=== PATIENT | male | born 1970 | race Caucasian/White ===

== ENCOUNTER 2018-08-30 20:28 | Emergency (ER) | payer BC, OTHER ==
[~2018-08-30] VITALS: Ht 193 cm; Wt 127.0 kg
[2018-08-30] MEDS ORDERED: ALPRAZolam 0.5 MG (XANAX) TAB PO SCH (20:45)
[2018-08-30 21:01] LABS: BASOPHILS % (AUTO) 0 % (0-10); EOSINOPHILS # (AUTO) 0.1 10^3/uL (0.0-0.3); EOSINOPHILS % (AUTO) 2 % (0-10); HEMATOCRIT 51 % (40-54); LYMPHOCYTES # (AUTO) 1.8 X 10^3 (1.0-4.0); LYMPHOCYTES % (AUTO) 33 % (12-44); MEAN CORPUSCULAR HEMOGLOBIN 29 PG (25-34); MEAN CORPUSCULAR HGB CONC 34 G/DL (32-36); MEAN CORPUSCULAR VOLUME 87 FL (80-99); MEAN PLATELET VOLUME 10.3 FL (7.4-10.4); MONOCYTES # (AUTO) 0.6 X 10^3 (0.0-1.0); MONOCYTES % (AUTO) 10 % (0-12); NEUTROPHILS # (AUTO) 3.1 X 10^3 (1.8-7.8); NEUTROPHILS % (AUTO) 55 % (42-75); PLATELET COUNT 218 10^3/uL (130-400); WHITE BLOOD COUNT 5.6 10^3/uL (4.3-11.0)
--- NOTE | 2018-08-30 21:14 | ED General ---
General Chief Complaint: General Problems/Pain Stated Complaint: GENERAL ANXIETY Source of Information: Patient Exam Limitations: No Limitations History of Present Illness Date Seen by Provider: Aug 30, 2018 Time Seen by Provider: 21:10 Initial Comments To ER with reports of not feeling quite right. States that he feels somewhat anxious. Last and he felt this way he was having ST elevation AL and subsequent had a few stents. He denies chest pain or shortness of breath or any specific complaints. This sensation began about noon today has been constant since Timing/Duration: 4-6 Hours Severity: Moderate Associated Systoms: No Chest Pain, No Diaphoresis, No Seizure Allergies and Home Medications Allergies Coded Allergies: No Known Drug Allergies (Unverified , 08/30/18) Patient Home Medication List Home Medication List Reviewed: Yes Review of Systems Review of Systems Constitutional: see HPI EENTM: see HPI Respiratory: no symptoms reported Cardiovascular: no symptoms reported; No chest pain, No edema, No palpitations , No syncope Genitourinary: no symptoms reported Musculoskeletal: no symptoms reported Skin: no symptoms reported Psychiatric/Neurological: No Symptoms Reported Hematologic/Lymphatic: No Symptoms Reported Immunological/Allergic: no symptoms reported Past Libuwkf-Fpmzyt-Wehglo Hx Patient Social History Recent Foreign Travel: No Contact w/Someone Who Travel: No Physical Exam Vital Signs Capillary Refill : Height, Weight, BMI Height: '" Weight: lbs. oz. kg; BMI Method: General Appearance: No Apparent Distress, WD/WN Eyes: Bilateral Eye Normal Inspection, Bilateral Eye PERRL, Bilateral Eye EOMI HEENT: PERRL/EOMI, TMs Normal Neck: Full Range of Motion, Normal Inspection Respiratory: Normal Breath Sounds, No Accessory Muscle Use, No Respiratory Distress Cardiovascular: Regular Rate, Rhythm, Normal Peripheral Pulses Gastrointestinal: Normal Bowel Sounds, Non Tender, Soft Extremity: Normal Capillary Refill, Normal Inspection Neurologic/Psychiatric: Alert, Oriented x3 Skin: Normal Color, Warm/Dry Comments EKG shows no ST segment changes, normal sinus rhythm Progress/Results/Core Measures Suspected Sepsis SIRS Temperature: Pulse: Respiratory Rate: Laboratory Tests 08/30/18 20:55: White Blood Count 5.6 Blood Pressure / Mean: Laboratory Tests 08/30/18 20:55: Creatinine 1.18, Platelet Count 218, Total Bilirubin 0.8 Results/Orders Lab Results Laboratory Tests Test 08/30/18 20:55 Range/Units White Blood Count 5.6 4.3-11.0 10^3/uL Red Blood Count 5.82 4.35-5.85 10^6/uL Hemoglobin 17.0 13.3-17.7 G/DL Hematocrit 51 40-54 % Mean Corpuscular Volume 87 80-99 FL Mean Corpuscular Hemoglobin 29 25-34 PG Mean Corpuscular Hemoglobin Concent 34 32-36 G/DL Red Cell Distribution Width 14.0 10.0-14.5 % Platelet Count 218 130-400 10^3/uL Mean Platelet Volume 10.3 7.4-10.4 FL Neutrophils (%) (Auto) 55 42-75 % Lymphocytes (%) (Auto) 33 12-44 % Monocytes (%) (Auto) 10 0-12 % Eosinophils (%) (Auto) 2 0-10 % Basophils (%) (Auto) 0 0-10 % Neutrophils # (Auto) 3.1 1.8-7.8 X 10^3 Lymphocytes # (Auto) 1.8 1.0-4.0 X 10^3 Monocytes # (Auto) 0.6 0.0-1.0 X 10^3 Eosinophils # (Auto) 0.1 0.0-0.3 10^3/uL Basophils # (Auto) 0.0 0.0-0.1 10^3/uL Sodium Level 141 135-145 MMOL/L Potassium Level 3.8 3.6-5.0 MMOL/L Chloride Level 106 98-107 MMOL/L Carbon Dioxide Level 21 21-32 MMOL/L Anion Gap 14 5-14 MMOL/L Blood Urea Nitrogen 15 7-18 MG/DL Creatinine 1.18 0.60-1.30 MG/DL Estimat Glomerular Filtration Rate > 60 BUN/Creatinine Ratio 13 Glucose Level 119 H 70-105 MG/DL Calcium Level 9.5 8.5-10.1 MG/DL Corrected Calcium 9.2 8.5-10.1 MG/DL Magnesium Level 2.4 1.8-2.4 MG/DL Total Bilirubin 0.8 0.1-1.0 MG/DL Aspartate Amino Transf (AST/SGOT) 27 5-34 U/L Alanine Aminotransferase (ALT/SGPT) 51 0-55 U/L Alkaline Phosphatase 72 40-136 U/L Troponin I < 0.028 <0.028 NG/ML Total Protein 7.6 6.4-8.2 GM/DL Albumin 4.4 3.2-4.5 GM/DL Thyroid Stimulating Hormone (TSH) 1.38 0.35-4.94 UIU/ML My Orders Orders - LESLIE PEDRO APRN Cbc With Automated Diff (08/30/18 20:39) Comprehensive Metabolic Panel (08/30/18 20:39) Troponin I (08/30/18 20:39) Magnesium (08/30/18 20:39) Thyroid Stimulating Hormone (08/30/18 20:39) Ekg Tracing (08/30/18 20:39) Alprazolam Tablet (Xanax Tablet) (08/30/18 20:45) Rx-Lorazepam (Rx-Ativan) (08/30/18 21:48) Vital Signs/I&O Capillary Refill : Departure Impression Primary Impression: Anxiety Additional Impression: History of coronary artery disease Disposition: HOME, SELF-CARE Condition: Stable Departure-Patient Inst. Decision time for Depature: 21:47 Referrals: UNKNOWN (PCP/Family) Primary Care Physician Patient Instructions: NO INSTRUCTIONS GIVEN Add. Discharge Instructions: 1. Follow-up with your doctor as scheduled 2. Take the lorazepam every 6-8 hours as needed for anxiety. This may make you sleepy so don't drive after taking this for about 6hours. LESLIE PEDRO APRN Aug 30, 2018 21:13
[2018-08-30 21:23] LABS: ALANINE AMINOTRANSFERASE 51 U/L (0-55); ALBUMIN 4.4 GM/DL (3.2-4.5); ALKALINE PHOSPHATASE 72 U/L (40-136); BILIRUBIN,TOTAL 0.8 MG/DL (0.1-1.0); BUN/CREATININE RATIO 13; CALCIUM 9.5 MG/DL (8.5-10.1); CARBON DIOXIDE 21 MMOL/L (21-32); CHLORIDE 106 MMOL/L (98-107); CREATININE SERUM 1.18 MG/DL (0.60-1.30); GFR ESTIMATED > 60; GLUCOSE 119 MG/DL (70-105); MAGNESIUM 2.4 MG/DL (1.8-2.4); POTASSIUM 3.8 MMOL/L (3.6-5.0); SODIUM 141 MMOL/L (135-145); TOTAL PROTEIN 7.6 GM/DL (6.4-8.2)
[2018-08-30] MEDS ORDERED: RX-LORAZEPAM (ATIVAN) 0.5 MG TAB PPK#4 PO ONE (21:48)
[2018-08-30] MEDS ORDERED: RX-LORAZEPAM (ATIVAN) 0.5 MG TAB PPK#4 PO STA (21:56)
[2018-08-30 22:00] VITALS: BP 135/98
== END 2018-08-30 22:00 | disposition home or self-care (01) ==
LOC: ER 20:39
DX: F41.9 Anxiety disorder, unspecified (principal); I25.10 Atherosclerotic heart disease of native coronary artery without angina pectoris; I25.2 Old myocardial infarction; Z95.5 Presence of coronary angioplasty implant and graft
CPT/HCPCS: 36415; 80053; 83735; 84443; 84484; 85025; 93005

== ENCOUNTER 2022-08-17 11:49 | Emergency (ER) | payer SELFPAY ==
[~2022-08-17] VITALS: Ht 190 cm; Wt 123.0 kg
[2022-08-17] MEDS ORDERED: morphine INJ 10 MG/ML 1ML (SYR OR VIAL) IVP STA (12:08)
[2022-08-17] MEDS ORDERED: FAMOTIDINE 20 MG (PEPCID) TABLET PO STA (12:08)
[2022-08-17 12:13] LABS: BASOPHILS % (AUTO) 1 % (0-10); EOSINOPHILS # (AUTO) 0.1 10^3/uL (0.0-0.3); EOSINOPHILS % (AUTO) 1 % (0-10); HEMATOCRIT 50 % (40-54); HEMOGLOBIN 16.9 g/dL (13.3-17.7); LYMPHOCYTES # (AUTO) 1.5 10^3/uL (1.0-4.0); LYMPHOCYTES % (AUTO) 24 % (12-44); MEAN CORPUSCULAR HEMOGLOBIN 30 pg (25-34); MEAN CORPUSCULAR HGB CONC 34 g/dL (32-36); MEAN CORPUSCULAR VOLUME 87 fL (80-99); MEAN PLATELET VOLUME 10.1 fL (9.0-12.2); MONOCYTES # (AUTO) 0.4 10^3/uL (0.0-1.0); MONOCYTES % (AUTO) 7 % (0-12); NEUTROPHILS # (AUTO) 4.1 10^3/uL (1.8-7.8); NEUTROPHILS % (AUTO) 67 % (42-75); PLATELET COUNT 220 10^3/uL (130-400); WHITE BLOOD COUNT 6.1 10^3/uL (4.3-11.0)
[2022-08-17] MEDS ORDERED: ANTACID SUSP 30 ML UDC (MYLANTA) PO ONE (12:15)
[2022-08-17] MEDS ORDERED: LIDOCAINE 2% VISCOUS 15 ML UDC PO ONE (12:15)
[2022-08-17 12:16] LABS: INR 0.9 (0.8-1.4)
--- NOTE | 2022-08-17 12:16 | ED General ---
General Chief Complaint: Chest Pain Stated Complaint: DIZZINESS | CHEST PAIN Source of Information: Patient, Family Exam Limitations: No Limitations History of Present Illness Date Seen by Provider: Aug 17, 2022 Time Seen by Provider: 11:51 Initial Comments 52yoM with PMH of pAfib (on full dose aspirin, Cardizem, and Flecainide), CAD s /p stenting, HTN, HLD coming in due to initially right sided testicle pain that started around 09:30am. It was constant, sharp, associated with nausea. Has never had pain like this before. Started feeling lightheaded and dizzy so wanted to come to the emergency department worried about a cardiac event. He did have some mild chest pain that started shortly prior to arrival which is not really happening right now. He states it does not really feel like a heart attack to him like he has had in the past. Denies any prior history of DVT or PE, no recent surgery in the past month, no lower extremity swelling or pain, no cough or hemoptysis, no shortness of breath, does not take any hormones. Denies any history of kidney stones, dysuria, hematuria, or flank pain right now. Allergies and Home Medications Allergies Coded Allergies: No Known Drug Allergies (Unverified , 08/30/18) Patient Home Medication List Home Medication List Reviewed: Yes Review of Systems Review of Systems Constitutional: diaphoresis; No fever EENTM: no symptoms reported Respiratory: no symptoms reported Cardiovascular: see HPI Gastrointestinal: no symptoms reported Genitourinary: see HPI Musculoskeletal: no symptoms reported Psychiatric/Neurological: No Symptoms Reported Hematologic/Lymphatic: No Symptoms Reported Past Yyxdmpn-Lvwczw-Fkthex Hx Patient Social History Tobacco Use?: No Use of E-Cig and/or Vaping dev: No Substance use?: No Alcohol Use?: No Pt feels they are or have been: No Immunizations Up To Date Tetanus Booster (TDap): Unknown PED Vaccines UTD: Yes Seasonal Allergies Seasonal Allergies: No Past Medical History Surgery/Hospitalization HX: [place]- 2 STENTS PLACED. A-FIB, HTN Surgeries: Yes Orthopedic Respiratory: No Cardiac: Yes (STENT) Coronary Artery Disease Genitourinary: No Gastrointestinal: No Musculoskeletal: No Endocrine: No HEENT: No Cancer: No Psychosocial: Yes Anxiety Integumentary: No Physical Exam Vital Signs Vital Signs - First Documented 08/17/22 11:54 Temp 35.8 Pulse 82 Resp 16 B/P (MAP) 160/95 (116) Pulse Ox 96 O2 Delivery Room Air Capillary Refill : Less Than 3 Seconds Height, Weight, BMI Height: 6'4.00" Weight: 280lbs. oz. 127.644309ja; BMI Method:Stated General Appearance: No Apparent Distress, WD/WN Eyes: Bilateral Eye Normal Inspection HEENT: PERRL/EOMI Neck: Full Range of Motion, Normal Inspection, Non Tender, Supple Respiratory: Chest Non Tender, Lungs Clear, Normal Breath Sounds, No Accessory Muscle Use, No Respiratory Distress Cardiovascular: Regular Rate, Rhythm, No Edema, Normal Peripheral Pulses Gastrointestinal: Normal Bowel Sounds, Non Tender, Soft; No Distended, No Guarding Genital/Rectal: Normal Genital Exam, Other (Testicles are normal size, not swollen, no tenderness on exam, cremasteric reflexes intact) Extremity: Normal Capillary Refill, Normal Inspection, Normal Range of Motion, Non Tender, No Calf Tenderness, No Pedal Edema Neurologic/Psychiatric: Alert, No Motor/Sensory Deficits, Normal Mood/Affect Skin: Normal Color, Warm/Dry Progress/Results/Core Measures Suspected Sepsis SIRS Temperature: Pulse: Respiratory Rate: Laboratory Tests 08/17/22 12:02: White Blood Count 6.1 Blood Pressure / Mean: Laboratory Tests 08/17/22 12:02: Creatinine 1.09, INR Comment 0.9, Platelet Count 220, Total Bilirubin 0.5 Results/Orders Lab Results Laboratory Tests Test 08/17/22 12:02 08/17/22 12:07 08/17/22 13:31 Range/Units White Blood Count 6.1 4.3-11.0 10^3/uL Red Blood Count 5.70 H 4.30-5.52 10^6/uL Hemoglobin 16.9 13.3-17.7 g/dL Hematocrit 50 40-54 % Mean Corpuscular Volume 87 80-99 fL Mean Corpuscular Hemoglobin 30 25-34 pg Mean Corpuscular Hemoglobin Concent 34 32-36 g/dL Red Cell Distribution Width 12.9 10.0-14.5 % Platelet Count 220 130-400 10^3/uL Mean Platelet Volume 10.1 9.0-12.2 fL Immature Granulocyte % (Auto) 0 % Neutrophils (%) (Auto) 67 42-75 % Lymphocytes (%) (Auto) 24 12-44 % Monocytes (%) (Auto) 7 0-12 % Eosinophils (%) (Auto) 1 0-10 % Basophils (%) (Auto) 1 0-10 % Neutrophils # (Auto) 4.1 1.8-7.8 10^3/uL Lymphocytes # (Auto) 1.5 1.0-4.0 10^3/uL Monocytes # (Auto) 0.4 0.0-1.0 10^3/uL Eosinophils # (Auto) 0.1 0.0-0.3 10^3/uL Basophils # (Auto) 0.0 0.0-0.1 10^3/uL Immature Granulocyte # (Auto) 0.0 0.0-0.1 10^3/uL Prothrombin Time 13.0 12.2-14.7 SEC INR Comment 0.9 0.8-1.4 Activated Partial Thromboplast Time 26 24-35 SEC D-Dimer 0.27 0.00-0.49 UG/ML Sodium Level 137 135-145 MMOL/L Potassium Level 4.8 3.6-5.0 MMOL/L Chloride Level 102 98-107 MMOL/L Carbon Dioxide Level 25 21-32 MMOL/L Anion Gap 10 5-14 MMOL/L Blood Urea Nitrogen 23 H 7-18 MG/DL Creatinine 1.09 0.60-1.30 MG/DL Estimat Glomerular Filtration Rate 83 BUN/Creatinine Ratio 21 Glucose Level 159 H 70-105 MG/DL Calcium Level 9.6 8.5-10.1 MG/DL Corrected Calcium 8.5-10.1 MG/DL Magnesium Level 2.4 1.6-2.4 MG/DL Total Bilirubin 0.5 0.1-1.0 MG/DL Aspartate Amino Transf (AST/SGOT) 21 5-34 U/L Alanine Aminotransferase (ALT/SGPT) 29 0-55 U/L Alkaline Phosphatase 76 40-136 U/L Troponin I < 0.30 < 0.30 <0.30 NG/ML Pro-B-Type Natriuretic Peptide < 36.0 <125.0 PG/ML Total Protein 8.2 6.4-8.2 GM/DL Albumin 4.6 H 3.2-4.5 GM/DL Lipase 48 8-78 U/L Urine Color YELLOW Urine Clarity CLEAR Urine pH 6.0 5-9 Urine Specific [place] >=1.030 1.016-1.022 Urine Protein TRACE H NEGATIVE Urine Glucose (UA) NEGATIVE NEGATIVE Urine Ketones NEGATIVE NEGATIVE Urine Nitrite NEGATIVE NEGATIVE Urine Bilirubin NEGATIVE NEGATIVE Urine Urobilinogen 0.2 < = 1.0 MG/DL Urine Leukocyte Esterase NEGATIVE NEGATIVE Urine RBC (Auto) NEGATIVE NEGATIVE Urine RBC 5-10 H /HPF Urine WBC RARE /HPF Urine Squamous Epithelial Cells 2-5 /HPF Urine Crystals NONE /LPF Urine Bacteria TRACE /HPF Urine Casts NONE /LPF Urine Mucus LARGE H /LPF Urine Other SPERM PRESENT LRG 4+ /HPF Urine Culture Indicated NO My Orders Orders - JENNIE CHARLES MD Cbc With Automated Diff (08/17/22 12:08) Magnesium (08/17/22 12:08) Ekg Tracing (08/17/22 12:08) Comprehensive Metabolic Panel (08/17/22 12:08) Protime With Inr (08/17/22 12:08) Partial Thromboplastin Time (08/17/22 12:08) O2 (08/17/22 12:08) Monitor-Rhythm Ecg Trace Only (08/17/22 12:08) Ed Iv/Invasive Line Start (08/17/22 12:08) Lipase (08/17/22 12:08) Fibrin Degradation Products (08/17/22 12:08) Troponin I Fs (08/17/22 12:08) Probnp Fs (08/17/22 12:08) Ua Culture If Indicated (08/17/22 12:08) Lidocaine 2% Viscous 15 Ml (Xylocaine Vi (08/17/22 12:15) Famotidine Tablet (Pepcid Tablet) (08/17/22 12:08) Antacid Suspension (Mylanta Suspension (08/17/22 12:15) Morphine Injection (Morphine Injection (08/17/22 12:08) Troponin I Fs (08/17/22 13:30) Ct Abdomen/Pelvis Wo (08/17/22 ) Chest Pa/Lat (2 View) (08/17/22 ) Medications Given in ED Current Medications Medications Dose Ordered Sig/Senthil Route Start Time Stop Time Status Last Admin Dose Admin Al Hydrox/Mg Hydrox/Simethicone 30 ml ONCE ONCE PO 08/17/22 12:15 08/17/22 12:16 DC 08/17/22 12:24 30 ML Lidocaine HCl 15 ml ONCE ONCE PO 08/17/22 12:15 08/17/22 12:16 DC 08/17/22 12:24 15 ML Vital Signs/I&O 08/17/22 08/17/22 08/17/22 11:54 12:20 14:01 Temp 35.8 Pulse 82 70 Resp 16 18 B/P (MAP) 160/95 (116) 148/80 Pulse Ox 96 95 95 O2 Delivery Room Air Room Air Room Air Capillary Refill : Less Than 3 Seconds Progress Note : Progress Note 52-year-old male with above history coming in due to initially scrotal pain as well as dizziness and some chest discomfort. ABCs were intact and vitals were stable on presentation. Physical exam with normal-appearing scrotum, nontender testicles, normal cremasteric reflex. I did a elxbq-ly-[id number] ultrasound showing that his testicles were similar size and they both had Doppler signals consistent with blood flow. I think torsion is highly unlikely given he has no pain on exam. At this point I did offer to transfer the patient to [place] to have a formal ultrasound to fully rule out torsion. But the patient and I think it is very unlikely, and he declined this at this time. Urinalysis with little bit of blood which could be consistent with ureterolithiasis. His EKG looks similar to prior on my interpretation with no acute ischemic changes. An IV was placed and basic labs were obtained including cardiac biomarkers. Troponin was negative x2. Even on my initial evaluation he was not having chest pain at that time. I think is unlikely he is having a cardiac event. D-dimer is negative making a PE as well as dissection very unlikely. Chest x-ray ordered and interpreted by me showing no pneumonia, normal cardiac silhouette, no pneumothorax. CT abdomen pelvis negative for acute findings other than he does have a small fat containing inguinal hernia on the left which is the wrong side compared to where his symptoms were. After receiving morphine and a GI cocktail, he states he is back to normal. I believe he is otherwise stable for discharge with outpatient follow-up. He was sent home with strict return precautions. ECG Initial ECG Impression Date: Aug 17, 2022 Initial ECG Impression Time: 11:57 Initial ECG Rate: 77 Initial ECG Rhythm: Normal Sinus Comment Narrow QRS, normal axis, no significant ST changes or T wave abnormalities Diagnostic Imaging Diagonstic Imaging: Xray (chest), CT (abd/pelvis) Comments NAME: RANJANA ZAMUDIO [facility] REC#: [id number] PT STATUS: REG ER : 1970 PHYSICIAN: JENNIE CHARLES MD ADMIT DATE: 08/17/22/ER FS Draft Date of Exam:08/17/22 CT ABDOMEN/PELVIS WO PROCEDURE: CT abdomen and pelvis without contrast. TECHNIQUE: Multiple contiguous axial images were obtained through the abdomen and pelvis without the use of intravenous contrast. Auto Exposure Controls were utilized during the CT exam to meet ALARA standards for radiation dose reduction. INDICATION: Testicular pain radiating into the abdomen and chest. COMPARISON: None FINDINGS: Lung bases are clear. The heart is normal in size. There is no pericardial effusion. Liver demonstrates no focal lesions. The spleen appears normal. The pancreas is normal. The adrenal glands appear normal. The kidneys demonstrate no hydronephrosis and no calculi. The bowel loops are nondistended without obstruction. No free fluid or free air is seen. A few diverticuli are seen in the distal colon without diverticulitis. The appendix is normal. The scrotum is not completely included on this exam. There is a small fat-containing left inguinal hernia with no bowel involvement. No acute osseous abnormality is seen. There are degenerative changes at L5-S1. IMPRESSION: 1. Small fat-containing left inguinal hernia with no bowel involvement. 2. No acute abnormalities seen elsewhere in the abdomen and pelvis. Dictated on workstation # [id number] Dict: 08/17/22 1348 Trans: 08/17/22 1353 [facility] [id number] Interpreted by: TREY WEATHERS MD Electronically signed by: NAME: RANJANA ZAMUDIO [facility] REC#: [id number] PT STATUS: REG ER : 1970 PHYSICIAN: JENNIE CHARLES MD ADMIT DATE: 08/17/22/ER FS Draft Date of Exam:08/17/22 CHEST PA/LAT (2 VIEW) EXAM: CHEST PA/LAT (2 VIEW) INDICATION: Chest pain. Dizziness and nausea. COMPARISON: None. FINDINGS: Normal heart size and central pulmonary vascularity. Lungs are clear. No pleural effusion or pneumothorax. No acute osseous findings. IMPRESSION: No acute cardiopulmonary findings. Dictated on workstation # [id number] Dict: 08/17/22 1348 Trans: 08/17/22 1351 CV [id number] Interpreted by: NIKUNJ CALIXTO MD Electronically signed by: Departure Impression Primary Impression: Scrotal pain Additional Impression: Chest pain Qualified Codes: R07.2 - Precordial pain Disposition: HOME, SELF-CARE Condition: Stable Departure-Patient Inst. Decision time for Depature: 14:10 Referrals: NO,LOCAL PHYSICIAN (PCP/Family) Primary Care Physician Patient Instructions: Chest Pain, Adult ED Add. Discharge Instructions: We are not seeing any evidence of concern on your testicle on exam as well as ultrasound. You did have a little blood in your urine, its possible you passed a kidney stone. Your troponin was negative twice and this makes it very unlikely that you are having a cardiac event. Please follow back up with your regular doctor and piper helper, especially if you are not feeling well. JENNIE CHARLES MD Aug 17, 2022 12:16
[2022-08-17 12:17] LABS: BILIRUBIN,URINE NEGATIVE (NEGATIVE); CLARITY,URINE CLEAR; COLOR,URINE YELLOW; GLUCOSE, URINE (UA) NEGATIVE (NEGATIVE); KETONES,URINE NEGATIVE (NEGATIVE); LEUKOCYTE ESTERASE ,URINE NEGATIVE (NEGATIVE); NITRITE,URINE NEGATIVE (NEGATIVE); PROTEIN,URINE TRACE (NEGATIVE)
[2022-08-17 12:21] LABS: BACTERIA,URINE TRACE /HPF; URINE OTHER SPERM PRESENT LRG 4+ /HPF; WBC,URINE RARE /HPF
[2022-08-17 12:27] LABS: BILIRUBIN,TOTAL 0.5 MG/DL (0.1-1.0); BUN/CREATININE RATIO 21; CALCIUM 9.6 MG/DL (8.5-10.1); CARBON DIOXIDE 25 MMOL/L (21-32); CHLORIDE 102 MMOL/L (98-107); CREATININE SERUM 1.09 MG/DL (0.60-1.30); GFR ESTIMATED 83; GLUCOSE 159 MG/DL (70-105); MAGNESIUM 2.4 MG/DL (1.6-2.4); POTASSIUM 4.8 MMOL/L (3.6-5.0); SODIUM 137 MMOL/L (135-145)
[2022-08-17 12:28] LABS: ALANINE AMINOTRANSFERASE 29 U/L (0-55); ALBUMIN 4.6 GM/DL (3.2-4.5); ALKALINE PHOSPHATASE 76 U/L (40-136); LIPASE 48 U/L (8-78); TOTAL PROTEIN 8.2 GM/DL (6.4-8.2)
--- NOTE | 2022-08-17 13:52 | Diagnostic Imaging Report ---
EXAM: CHEST PA/LAT (2 VIEW) INDICATION: Chest pain. Dizziness and nausea. COMPARISON: None. FINDINGS: Normal heart size and central pulmonary vascularity. Lungs are clear. No pleural effusion or pneumothorax. No acute osseous findings. IMPRESSION: No acute cardiopulmonary findings. Dictated by: Dictated on workstation # [id number]
--- NOTE | 2022-08-17 13:53 | Diagnostic Imaging Report ---
PROCEDURE: CT abdomen and pelvis without contrast. TECHNIQUE: Multiple contiguous axial images were obtained through the abdomen and pelvis without the use of intravenous contrast. Auto Exposure Controls were utilized during the CT exam to meet ALARA standards for radiation dose reduction. INDICATION: Testicular pain radiating into the abdomen and chest. COMPARISON: None FINDINGS: Lung bases are clear. The heart is normal in size. There is no pericardial effusion. Liver demonstrates no focal lesions. The spleen appears normal. The pancreas is normal. The adrenal glands appear normal. The kidneys demonstrate no hydronephrosis and no calculi. The bowel loops are nondistended without obstruction. No free fluid or free air is seen. A few diverticuli are seen in the distal colon without diverticulitis. The appendix is normal. The scrotum is not completely included on this exam. There is a small fat-containing left inguinal hernia with no bowel involvement. No acute osseous abnormality is seen. There are degenerative changes at L5-S1. IMPRESSION: 1. Small fat-containing left inguinal hernia with no bowel involvement. 2. No acute abnormalities seen elsewhere in the abdomen and pelvis. Dictated by: Dictated on workstation # [id number]
[2022-08-17 14:01] VITALS: BP 148/80
== END 2022-08-17 14:09 | disposition home or self-care (01) ==
LOC: EDUNIT# 11:49 → ER FS 11:52
DX: R07.89 Other chest pain (principal); N50.82 Scrotal pain; I48.91 Unspecified atrial fibrillation; I10 Essential (primary) hypertension; Z79.82 Long term (current) use of aspirin; Z79.899 Other long term (current) drug therapy; Z95.5 Presence of coronary angioplasty implant and graft; Z28.310 Unvaccinated for COVID-19
CPT/HCPCS: 36415; 71046; 74176; 80053; 81000; 83690; 83735; 83880; 84484; 85025; 85379; 85610; 85730; 93005; 93041